=== PATIENT | female | born 1950 | race Two or more races ===

== ENCOUNTER 2020-03-03 07:00 | Day surgery (SDC) | payer OTHER ==
[~2020-03-03] VITALS: Ht 157.5 cm; Wt 68.9 kg
[~2020-03-03 07:00] MED LIST: COZAAR25 MG PO; GLIPIZIDE XL2.5 MG PO; SIMVASTATIN20 MG PO; SYNTHROID50 MCG PO
[2020-03-03] MEDS ORDERED: CALCIUM 600-VI1 EAC2 PO (13:15)
[2020-03-03] MEDS ORDERED: CENTRUM SILVER1 EAC2 (13:15)
[2020-03-03] MEDS ORDERED: LOSARTAN POTASS50 MG PO (13:16)
[2020-03-03] MEDS ORDERED: LEVO-T25 MCG PO (13:16)
== END 2020-03-04 08:00 | disposition home or self-care (01) ==
LOC: CIR.AMB 07:00 → ADM 09:45 → EDSTATUS 09:45 → SURH 09:45 → SURG 10:26 → O/R 10:26 → SURH 10:26 → SURG 15:27 → O/R 15:27 → CIR.AMB 03-04 08:00 → O/R 03-04 11:15 → SURG 03-04 11:15
PROVIDERS: ATTEND Surgery
DX: D12.8 Benign neoplasm of rectum (principal)
CPT/HCPCS: 0184T; 64430

== ENCOUNTER 2021-05-09 06:44 | Day surgery (SDC) | payer OTHER ==
[~2021-05-09 06:44] MED LIST changes: +CALCIUM 600-VI1 EAC2 PO; +CENTRUM SILVER1 EAC2; +LEVO-T25 MCG PO; +LOSARTAN POTASS50 MG PO
== END 2021-05-09 13:20 | disposition home or self-care (01) ==
LOC: AMB-ENDOS 06:44
PROVIDERS: ATTEND Surgery
DX: D12.0 Benign neoplasm of cecum (principal); K64.8 Other hemorrhoids; Z20.822 Contact with and (suspected) exposure to COVID-19

== ENCOUNTER 2021-05-09 07:13 | Outpatient (CLI) | payer OTHER | END 2021-05-09 08:04 | disposition home or self-care (01) | LOC: LAB 07:13 | PROVIDERS: ATTEND Orthopaedic Surgery Orthopaedic Surgery of the Spine | DX: Z03.818 Encounter for observation for suspected exposure to other biological agents ruled out (principal); Z20.828 Contact with and (suspected) exposure to other viral communicable diseases ==